=== PATIENT | male | born 1945 | race Caucasian/White ===

== ENCOUNTER → 2019-12-09 | Outpatient (CLI) | payer OTHER ==
[~2019-12-09] MED LIST: ASCO100031 PO; ASPI-1443 PO; CLOP75TA14 PO; DUTA.5 PO; GLUC100019 PO; MELO-106 PO; METO25TA6 PO; MULT-40 PO; NITR0.4T SL; OMEG1CAP12 PO; SIMV-43 PO; TAMS-1 PO; THIA100T75 PO
== END | disposition home or self-care (01) ==
LOC: SHCH 08:43
PROVIDERS: ATTEND Internal Medicine Cardiovascular Disease
DX: I35.0 Nonrheumatic aortic (valve) stenosis (principal)
CPT/HCPCS: 93306; 93356